=== PATIENT | female | born 1955 | race Hispanic/Latino ===

== ENCOUNTER → 2022-06-08 08:43 | Outpatient (CLI) | payer SELFPAY ==
[2022-06-08 12:11] LABS: Blood Urea Nitrogen 46 mg/dL (7-17); Calcium 8.9 mg/dL (8.4-10.2); Carbon Dioxide 25 mmol/L (22-32); Chloride 103 mmol/L (98-107); Estimated Glomerular Filt Rate 34 mL/min (>60); Glucose 77 mg/dL (80-110); HEMOLYSIS < 15 (0-50); Potassium 4.6 mmol/L (3.4-5.1); Sodium 139 mmol/L (137-145)
[2022-06-14 07:50] LABS: Renin Activity 6.741 ng/mL/hr (0.167-5.380)
== END ==
PROVIDERS: PCP Family Medicine; Referring Provider Internal Medicine Cardiovascular Disease; Visit Provider Internal Medicine Cardiovascular Disease
DX: I50.32 Chronic diastolic (congestive) heart failure (principal); I10 Essential (primary) hypertension
CPT/HCPCS: 36415; 80048; 82088; 84244

== ENCOUNTER → 2022-06-28 06:31 | Outpatient (CLI) | payer SELFPAY ==
--- NOTE | 2022-06-28 06:32 | DI.ECHO.S_ITS ---
[facility] +---------+ : : [address] : : : : [id number] : : : : Phone: [phone]+ Echocardiogram Report + + :Name: WILLIS JACKSON Study Date: 06/28/2022 Height: 60 in : :[facility] ReadingLocation: Weight: 189 lb : : Gender: Female BSA: 1.8 m2 : :: 1955 Age: 67 yrs BP: 197/96 mmHg: :Reason For Study: Congestive Heart Failure : :Ordering Physician: JALEESA, : :ELLY Performed By: Delroy Aviles : :Referring: ELLY CURRY : + + Interpretation Summary 1) Normal left ventricular size, thickness, wall motion, and systolic function (EF 55-60%). 2) Normal right ventricular size and function. 3) No significant valvular abnormalities. 4) No prior Echo available for comparison. Procedure: A two-dimensional transthoracic echocardiogram with color flow and Doppler was performed. The study quality was technically adequate. There is no prior echocardiogram noted for this patient. A contrast injection of Definity was performed to improve assessment of LV function. The patient was in normal sinus rhythm during the exam. Left Ventricle: The left ventricle is normal in size and wall thickness. Left ventricular systolic function is normal. The ejection fraction is estimated to be 55-60%. There are no focal wall motion abnormalities. Diastolic function could not be accurately assessed due to unobtainable data. Right Ventricle: The right ventricle is normal in size and function. Atria: Both atria are normal in size. The interatrial septum grossly appears intact with no obvious evidence for an atrial septal defect. Mitral Valve: There is trace mitral regurgitation. Aortic Valve: The aortic valve is normal in structure and function. There is no aortic valve stenosis. No aortic regurgitation is present. Tricuspid Valve: The tricuspid valve is normal in structure and function. There is a trace or physiologic amount of tricuspid regurgitation. Pulmonary artery pressures cannot be estimated because of the lack of a measurable TR jet velocity. Pulmonic Valve: The pulmonic valve is normal in structure and function. There is no pulmonic valvular regurgitation. Great Vessels: The aortic root is normal size. The dimensions of the ascending aorta are normal. The IVC is of normal diameter and collapses greater than 50% with a sniff. This suggests a low right atrial pressure of 3 mm Hg. Pericardium/ Pleura There is no pericardial effusion. There is no pleural effusion. MMode/2D Measurements & Calculations LVIDd: 4.6 cm LVOT diam: 2.0 cm LVIDs: 3.3 cm Ao root diam: 2.6 cm FS: 28.3 % asc Aorta Diam: 3.1 cm IVSd: 1.0 cm LVPWd: 0.90 cm LV byrne. diameter/BSA (cm/m^2): 2.5 LV sys. diameter/BSA (cm/m^2): 1.8 LA dimension: 3.4 cm RA long axis: 5.0 cm LA A2 area: 20.2 cm2 LA A4 area: 19.2 cm2 LA length (vol): 5.9 cm LA vol: 55.4 ml LA vol index: 30.4 ml/m2 TAPSE_phl: 2.5 cm Doppler Measurements & Calculations Ao V2 max: 135.0 cm/sec LVOT Max Jhoan: 85.5 cm/sec Ao V2 mean: 100.0 cm/sec LV V1 max P.9 mmHg Ao max P.0 mmHg LV V1 VTI: 22.5 cm Ao mean P.0 mmHg SHEYLA(I,D): 2.2 cm2 Ao V2 VTI: 32.1 cm SHEYLA(V,D): 2.0 cm2 sev ratio: 0.70 SHEYLA indexed to BSA (cm^2/m^2): 1.2 MV E max jhoan: 82.7 cm/sec SV(LVOT): 70.7 ml MV A max jhoan: 88.3 cm/sec MV E/A: 0.94 Med Peak E' Jhoan: 4.7 cm/sec E/E' med: 17.4 Lat Peak E' Jhoan: 9.2 cm/sec E/E' lat: 9.0 E/e' average: 13.2 MV dec time: 0.20 sec AV VR_phl: 0.63 MV P1/2t-pr_phl: 58.0 msec SHEYLA(VTI)/BSA_phl: 1.2 Reading Physician:10:30 AM
== END ==
PROVIDERS: PCP Family Medicine; Referring Provider Internal Medicine Cardiovascular Disease; Visit Provider Internal Medicine Cardiovascular Disease
DX: I50.32 Chronic diastolic (congestive) heart failure (principal); I25.10 Atherosclerotic heart disease of native coronary artery without angina pectoris; Z95.5 Presence of coronary angioplasty implant and graft
CPT/HCPCS: C8929; Q9957